=== PATIENT | female | born 1950 | race Caucasian/White ===

== ENCOUNTER 2017-04-27 10:03 | Inpatient (IN) | payer BC, OTHER ==
[2017-04-11 12:19] VITALS: BMI 34.0
--- NOTE | 2017-04-11 13:03 | PAT Medication Instructions ---
Service Date Apr 11, 2017. Current Home Medication List Acetaminophen Tab (Tylenol), 650 MG PO QID PRN for Pain Calcium Carbonate-Vitamin D (Calcium), 1 TAB PO QAM Coenzyme Q10 (Ubidecarenone) (Coq-10), 300 MG PO QAM Docusate Sodium (Colace), 2 CAP PO BID Ibuprofen (Ibuprofen), 400 MG PO BID PRN for Pain Multivitamin (Multivitamin), 1 TAB PO QAM Medication Instructions For Your Scheduled Surgery Ibuprofen (Ibuprofen), 400 MG PO BID PRN for Pain (hold 1 week prior to surgery per surgeon instructions) - Hold the following medications 2 weeks prior to surgery: Coenzyme Q10 (Ubidecarenone) (Coq-10), 300 MG PO QAM - Hold the following medications the morning of surgery: Multivitamin (Multivitamin), 1 TAB PO QAM Docusate Sodium (Colace), 2 CAP PO BID Calcium Carbonate-Vitamin D (Calcium), 1 TAB PO QAM - Take the following medications the morning of surgery with a sip of water: Acetaminophen Tab (Tylenol), 650 MG PO QID PRN for Pain (if needed) - Take the following medications as scheduled the night before surgery: Docusate Sodium (Colace), 2 CAP PO BID Acetaminophen Tab (Tylenol), 650 MG PO QID PRN for Pain If you have any questions please call us at [phone] or [phone] ( [facility]) or [phone]
--- NOTE | 2017-04-11 13:47 | DIAGNOSTIC IMAGING REPORT ---
CHEST PREADMISSION(PA/LAT) CLINICAL HISTORY: PAT preoperative evaluation COMPARISON STUDY: No previous studies for comparison. FINDINGS: The bones soft tissues and hemidiaphragms are normal. The cardiomediastinal silhouette is normal. The lungs are clear. The pulmonary vasculature is normal. IMPRESSION: Negative chest. Electronically signed by: Calixto Linder M.D. 04/11/2017 1:45 PM Dictated Date/Time: 04/11/2017 1:43 PM
[2017-04-11 13:55] LABS: BASO % 0.6 %; BASO ABS # 0.03 K/uL (0-0.2); COMPLETE YES; EOS % 0.6 %; HEMATOCRIT 39.6 % (37-47); IG% 0.2 %; LYMPH % 27.6 %; LYMPH ABS # 1.49 K/uL (1.2-3.4); MEAN CELL VOLUME 91.5 fL (80-100); MEAN CORPUSCULAR HEMOGLOBIN 29.8 pg (25-34); MEAN CORPUSCULAR HGB CONC 32.6 g/dl (32-36); MEAN PLATELET VOLUME 9.3 fL (7.4-10.4); MONO % 9.8 %; NEUT % 61.2 %; PLATELET COUNT 351 K/uL (130-400); RED BLOOD COUNT 4.33 M/uL (4.2-5.4); WHITE BLOOD COUNT 5.39 K/uL (4.8-10.8)
[2017-04-11 14:04] LABS: BUN/CREATININE RATIO 23.1 (10-20); CALCIUM 9.9 mg/dl (8.5-10.1); CREATININE 0.75 mg/dl (0.60-1.20); POTASSIUM 4.3 mmol/L (3.5-5.1)
[2017-04-11 14:11] LABS: URINE APPEARANCE CLEAR (CLEAR); URINE BILIRUBIN NEG (NEG); URINE COLOR DK YELLOW; URINE NITRITE NEG (NEG); URINE SPECIFIC GRAVITY 1.017 (1.000-1.030); UROBILINOGEN NEG (NEG)
[2017-04-11 14:19] LABS: MANUAL MICROSCOPIC REQUIRED? NO; REVIEW REQ? NO
[~2017-04-27] VITALS: Ht 157.5 cm; Wt 85.3 kg
[2017-04-27] VITALS (7 sets, daily range): BP systolic 95–155; BP diastolic 55–75; PULSE 71–99; TEMP 36.4–36.8; O2SAT 96–100; Ht 157.5 cm; Wt 85.3 kg
[~2017-04-27 10:03] MED LIST: ACET325T96 PO; ANCEF - ALLERGY NOTED TO ORDERED MEDICATION SCH; ATROPINE SULFATE 0.1 MG/ML 5ML SYR IV PRN; CALC-51 PO; CEFAZOLIN 2000 MG/60 ML D5W IV SCH; COEN150C2 PO; DOCU-94 PO; EpHEDrine SULFATE INJ 50 MG/ML AMP IV PRN; FENTANYL CITRATE INJ 50 MCG/1 ML 2 ML VIAL IV PRN; HYDROmorphone INJ 1 MG/ML SYR IV PRN; IBUP1CAP9 PO; LACTATED RINGER'S 1000ML 1,000 ML IV SCH; MULT-506 PO; ONDANSETRON INJ 2 MG/ML 2 ML VIAL IV PRN; SCOPOLAMINE 1.5 MG TDSY TD SCH
--- NOTE | 2017-04-27 11:51 | History & Physical Bridge Note ---
H&P Re-Evaluation Bridge Note: I have examined the patient, reviewed the History & Physical and in the interval since the performance of the History & Physical I have noted the following changes of clinical significance: No changes noted
[2017-04-27] MEDS ORDERED: FENTANYL CITRATE INJ 50 MCG/1 ML 2 ML VIAL ONE ×3 (11:52→16:21)
[2017-04-27] MEDS ORDERED: MIDAZOLAM HCL 1 MG/ML 2ML VIAL ONE (11:52)
--- NOTE | 2017-04-27 11:52 | History and Physical ---
History & Physical Date Apr 27, 2017. Chief Complaint back and leg pain History of Present Illness The patient is a 67 year old female with complaints of Additional History Hepatic Disease: No Endocrine Disorder: No Kidney Disease: No Hypertension: No Heart Disease: No Bleeding Tendencies: No Infectious Diseases: No Allergies Coded Allergies: Amoxicillin (Verified Allergy, Mild, HIVES, 04/27/17) Copper (Verified Allergy, Mild, HIVES, 04/27/17) Home Medications Scheduled Calcium Carbonate-Vitamin D (Calcium), 1 TAB PO QAM Coenzyme Q10 (Ubidecarenone) (Coq-10), 300 MG PO QAM Docusate Sodium (Colace), 2 CAP PO BID Multivitamin (Multivitamin), 1 TAB PO QAM Scheduled PRN Acetaminophen Tab (Tylenol), 650 MG PO QID PRN for Pain Ibuprofen (Ibuprofen), 400 MG PO BID PRN for Pain Physical Examination Skin: warm/dry, no rash Eyes: normal inspection, EOMI, sclerae normal ENT: normal ENT inspection, pharynx normal Head: normocephalic, atraumatic Neck: supple, no adenopathy, trachea midline Respiratory/Chest: lungs clear, normal breath sounds, no respiratory distress Cardiovascular: regular rate, rhythm, no edema, no murmur Abdomen / GI: normal bowel sounds, non tender Back: normal inspection Extremities: normal inspection, normal range of motion Neurologic/Psych: no motor/sensory deficits, alert, normal reflexes, oriented x 3 Diagnosis lumbar stenosis Plan of Treatment decompression fusion L3-S1
[2017-04-27] MEDS ORDERED: SODIUM CHLORIDE 0.9% PF 50 ML VIAL ONE (12:17)
[2017-04-27] MEDS ORDERED: BACITRACIN 50000 UNIT VIAL ONE (12:17)
[2017-04-27] MEDS ORDERED: BUPIVACAINE/EPINEPHRINE 0.5% MPF 1:200,000 10 ML VIAL ONE (12:17)
[2017-04-27] MEDS ORDERED: HYDROmorphone INJ 2 MG/ML SYR/VIAL ONE ×2 (12:58→16:20)
[2017-04-27] MEDS ORDERED: EpHEDrine SULFATE 50MG/5ML SYR ONE (13:14)
[2017-04-27] MEDS ORDERED: DiphenhydrAMINE HCL 50 MG/ML VIAL ONE (13:15)
[2017-04-27] MEDS ORDERED: ROCURONIUM BROMIDE 10 MG/ML 5 ML VIAL ONE (13:15)
[2017-04-27] MEDS ORDERED: ONDANSETRON INJ 2 MG/ML 2 ML VIAL ONE (13:15)
[2017-04-27] MEDS ORDERED: NEOSTIGMINE METHYLSULFATE 1 MG/ML 10ML VIAL ONE (13:15)
[2017-04-27] MEDS ORDERED: LIDOCAINE HCL 2% 2 ML VIAL (20MG/ML) ONE (13:15)
[2017-04-27] MEDS ORDERED: RANITIDINE HCL 25 MG/ML INJ ONE (13:15)
[2017-04-27] MEDS ORDERED: GLYCOPYRROLATE INJ 0.2 MG/ML VIAL ONE ×2 (13:15→14:25)
[2017-04-27] MEDS ORDERED: PROPOFOL IV EMULSION 10 MG/ML 20 ML VIAL IV ONE (13:15)
[2017-04-27] MEDS ORDERED: DEXAMETHASONE SOD INJ 4 MG/ML VIAL ONE (13:15)
[2017-04-27] MEDS ORDERED: METOCLOPRAMIDE HCL INJ 5 MG/ML 2 ML VIAL ONE (13:15)
[2017-04-27] MEDS ORDERED: ALBUMIN HUMAN 5% 12.5 GM/250 ML VIAL IV ONE ×2 (14:07)
[2017-04-27] MEDS ORDERED: PHENYLEPHRINE 100MCG/ML 5ML SYR ONE ×2 (14:42→15:21)
[2017-04-27] MEDS ORDERED: FLOSEAL HEMOSTATIC MATRIX 10ML TOP ONE (15:53)
[2017-04-27] MEDS ORDERED: SODIUM CHLORIDE 0.9% 1000ML 1,000 ML IV SCH ×2 (15:58→16:26)
[2017-04-27] MEDS ORDERED: LORAZEPAM INJ 0.5 MG in SYRINGE 0.75 ML IV PRN (16:00)
[2017-04-27] MEDS ORDERED: PROMETHAZINE HCL INJ 12.5 MG in SODIUM CHLORIDE 0.9% 50ML 50 ML IV PRN (16:00)
[2017-04-27] MEDS ORDERED: hydrOXYzine HCL 25 MG TAB PO PRN (16:00)
[2017-04-27] MEDS ORDERED: BISACODYL 10 MG SUPP PR PRN (16:00)
[2017-04-27] MEDS ORDERED: ALUMINUM/MAGNESIUM SUSP 30 ML UDC PO PRN (16:00)
[2017-04-27] MEDS ORDERED: METOCLOPRAMIDE HCL INJ 5 MG/ML 2 ML VIAL IV PRN (16:00)
[2017-04-27] MEDS ORDERED: DO NOT ADMINISTER FLU VACCINE PRN ×3 (16:00)
[2017-04-27] MEDS ORDERED: ACETAMINOPHEN 500 MG TAB PO PRN (16:00)
[2017-04-27] MEDS: CHECK SCOPOLAMINE PATCH PLACEMENT SCH (16:00)
[2017-04-27] MEDS ORDERED: NALOXONE HCL 0.4 MG/1 ML VIAL/CARP IV PRN ×3 (16:00→16:30)
[2017-04-27] MEDS ORDERED: HYDROmorphone INJ 0.5 MG/0.5 ML SYR IV PRN (16:00)
[2017-04-27] MEDS ORDERED: HYDROmorphone HCL 0.5MG/ML 50 ML CASSETTE IV PRN (16:00)
[2017-04-27] MEDS ORDERED: SOD PHOSPHATE/SOD BIPHOSPHATE ENEMA 132 ML BTL PR PRN (16:00)
[2017-04-27] MEDS ORDERED: LORAZEPAM 0.5 MG TAB PO PRN (16:00)
[2017-04-27] MEDS ORDERED: MAGNESIUM HYDROXIDE SUSP 30 ML UDC PO PRN (16:00)
[2017-04-27] MEDS ORDERED: FAMOTIDINE 20 MG TAB PO PRN (16:00)
[2017-04-27] MEDS ORDERED: DO NOT ADMINISTER PNEUMOCOCCAL VACCINE PRN ×2 (16:00)
[2017-04-27] MEDS ORDERED: ACETAMINOPHEN IV 100 ML IV PRN (16:00)
--- NOTE | 2017-04-27 16:05 | [facility] Operative Report ---
Operative Report Operative Date Apr 27, 2017. Pre-Operative Diagnosis Lumbar Spinal Stenosis L3-S1 Post-Operative Diagnosis Same as preoperative Procedure(s) Performed #1 lumbar decompression bilateral medial facetectomy foraminotomies L2 3 L3 4 L4 5 L5-S1. #2 posterior spinal fusion L3 4 L4 5 L5-S1. #3 placement of posterior segmental instrumentation L3 4 L4 5 L5-S1. 4 interbody fusion L5-S1. 5 placement of peek cage L5-S1 10 x 22 mm #6 placement locally harvested morcellized autograft and posterior gutters. #Placement of infuse collagen sponge about mask graft in the posterior lateral gutters and Jennifer bone graft in the interbody space. Surgeon Installation Tech Surgeon(s) Chapin Garcia PA-C Estimated Blood Loss 950mL Findings Severe spinal stenosis with spondylolisthesis Specimens None per surgeon Description of Procedure Patient was met with preoperatively case discussed all questions were addressed. At that point patient was taken back to the operative suite and after undergoing successful inhibition was placed in a prone position on the Luis table top of the Sumit frame. All bony prominences were well-padded eyes were inspected to ensure there is no external pressure placed upon them. # Was prepped and draped in normal sterile fashion sharp dissection with the assistance of Bovie cartilage was performed onto an exposing the lamina and transverse processes of 345 and the sacral alar. From a caudal to cephalad fashion complete laminectomy of L5 L4 L3 partial laminectomy of L2 was performed a secluded bilateral medial facetectomies foraminotomies to address severe lateral recess stenosis. After this complete pedicle screws were placed in L3-L4 L5-S1 levels bilaterally with the assistance of fluoroscopy and a a appropriately sized addi placed. Through a transforaminal approach on the right complete discectomy of L5 was was performed and plate curetted to subcortical bleeding bone and a 10 x 22 mm peek cage filled Jennifer bone grafting To position. Brought in and locked in place cross-link locked into place. Transverse processes of 345 burred to subcortical bleeding bone infuse collagen sponge mask graft locally harvested morcellized autograft was placed in the posterior lateral gutters. 15 round drain inserted. Incision was then closed with 1 Vicryl in the fascia 2-0 Vicryl subcutaneously and 4-0 Monocryl for final skin closure. Patient was awakened and taken to PACU in stable condition. Please note micral record was present throughout the entire procedure involved in patient positioning complexed portions of the procedure and final skin closure. I attest to the content of the Intraoperative Record and any orders documented therein. Any exceptions are noted below.
[2017-04-27] MEDS ORDERED: ESMOLOL HCL 10 MG/ML 10 ML VIAL ONE (16:09)
--- NOTE | 2017-04-27 16:09 | DIAGNOSTIC IMAGING REPORT ---
LUMBAR SPINE 2 OR 3 VIEW CLINICAL HISTORY: 67 years-old Female presenting with LUMBAR DECOMPRESSION/FUSION/INTERBODY. TECHNIQUE: 3 fluoroscopic spot images including frontal and lateral views of the lumbar spine were obtained intraoperatively as part of the surgical procedure. COMPARISON: None. FINDINGS/IMPRESSION: Posterior bilateral transpedicular screw and addi fixation of L3-S1 with interbody spacer at L5-S1. Grossly normal anatomic alignment. Fluoroscopic time: 30 seconds. Please see separately dictated surgical report for further details. Electronically signed by: Dashawn Tatum M.D. 04/27/2017 4:08 PM Dictated Date/Time: 04/27/2017 4:06 PM
[2017-04-27] MEDS ORDERED: HYDROmorphone HCL 0.5MG/ML 50 ML CASSETTE ONE (16:21)
--- NOTE | 2017-04-27 16:46 | Anesthesiology Progress Note ---
Anesthesia Post Op Note Date & Time Apr 27, 2017 at 16:46 Vital Signs Vital Signs Past 12 Hours Date Time Temp Pulse Resp B/P (MAP) Pulse Ox O2 Delivery O2 Flow Rate FiO2 04/27/17 16:35 94 14 110/55 100 Oxymask 10 04/27/17 16:25 95 14 143/72 100 Oxymask 10 04/27/17 16:20 36.2 100 16 122/70 100 Oxymask 04/27/17 10:53 36.8 71 18 155/75 98 Room Air Notes Mental Status: alert / awake / arousable, participated in evaluation Pt Amnestic to Procedure: Yes Nausea / Vomiting: adequately controlled Pain: adequately controlled Airway Patency, RR, SpO2: stable & adequate BP & HR: stable & adequate Hydration State: stable & adequate Anesthetic Complications: no major complications apparent
[2017-04-27] MEDS ORDERED: OXYCODONE HCL IR 5 MG TAB (IMMEDIATE RELEASE) PO PRN (18:14)
[2017-04-27] MEDS: LACTATED RINGER'S 1000ML 1,000 ML IV SCH ×2 (18:53→22:07)
[2017-04-27] MEDS ORDERED: PNEUMOCOCCAL POLYSACCHARIDES 25 MCG/0.5 ML VIAL/SYR IM. ONE (19:00)
[2017-04-27] MEDS ORDERED: PNEUMOCOCCAL ADMINISTRATION CHARGE ONE (19:00)
[2017-04-27] MEDS: CLINDAMYCIN IV 600 MG in DEXTROSE 5% 50ML 50 ML IV SCH (20:22)
[2017-04-27] MEDS: DOCUSATE SODIUM/SENNA 50/8.6MG TAB PO SCH (20:22)
[2017-04-27] MEDS: DEXAMETHASONE INJ 6 MG in SYRINGE 0 ML IV SCH (22:06)
[2017-04-27] MEDS: ONDANSETRON INJ 2 MG/ML 2 ML VIAL IV PRN (22:13)
[2017-04-27] MEDS: HYDROmorphone HCL 0.5MG/ML 50 ML CASSETTE IV PRN (23:01)
[2017-04-28] MEDS: CHECK SCOPOLAMINE PATCH PLACEMENT SCH ×3 (00:18→15:23)
[2017-04-28 03:21] VITALS: BP 100/62; PULSE 87; TEMP 36.5; O2SAT 100
[2017-04-28] MEDS: CLINDAMYCIN IV 600 MG in DEXTROSE 5% 50ML 50 ML IV SCH (03:53)
[2017-04-28] MEDS: LACTATED RINGER'S 1000ML 1,000 ML IV SCH (03:53)
[2017-04-28] MEDS: DEXAMETHASONE INJ 6 MG in SYRINGE 0 ML IV SCH ×2 (05:25→13:48)
[2017-04-28] MEDS: ONDANSETRON INJ 2 MG/ML 2 ML VIAL IV PRN (05:28)
[2017-04-28 05:53] LABS: BASO % 0.1 %; BASO ABS # 0.01 K/uL (0-0.2); HEMATOCRIT 25.4 % (37-47); IG% 0.3 %; LYMPH % 6.6 %; LYMPH ABS # 0.75 K/uL (1.2-3.4); MEAN CELL VOLUME 90.7 fL (80-100); MEAN CORPUSCULAR HEMOGLOBIN 30.4 pg (25-34); MEAN CORPUSCULAR HGB CONC 33.5 g/dl (32-36); MEAN PLATELET VOLUME 8.9 fL (7.4-10.4); MONO % 7.3 %; NEUT % 85.7 %; PLATELET COUNT 286 K/uL (130-400); WHITE BLOOD COUNT 11.39 K/uL (4.8-10.8)
[2017-04-28 06:29] LABS: COMPLETE YES
[2017-04-28 06:31] LABS: BUN/CREATININE RATIO 19.3 (10-20); CALCIUM 8.4 mg/dl (8.5-10.1); CREATININE 0.67 mg/dl (0.60-1.20); POTASSIUM 4.5 mmol/L (3.5-5.1)
[2017-04-28 06:44] VITALS: BP 99/61; PULSE 87; TEMP 36.9; O2SAT 98
[2017-04-28] MEDS: HYDROmorphone HCL 0.5MG/ML 50 ML CASSETTE IV PRN (07:11)
[2017-04-28] MEDS ORDERED: RXC5 PO (09:55)
--- NOTE | 2017-04-28 09:56 | Discharge Instructions ---
Discharge Instructions Date of Service Apr 28, 2017. Admission Reason for Admission: Lumbar Spinal Stenosis Discharge Discharge Diagnosis / Problem: stenosis Discharge Goals Goal(s): Improve function Activity Recommendations Activity Limitations: per Instructions/Follow-up section . Instructions / Follow-Up Instructions / Follow-Up ACTIVITY RECOMMENDATIONS: SELF CARE INSTRUCTIONS AFTER THORACIC/LUMBAR FUSIONS 1. You may walk to your tolerance. It is good exercise for your legs and back. Expect some back and intermittent leg aches and pains. 2. You may perform "counter-top" level activities (make a sandwich, kit with a project, etc.). 3. No bending or lifting of more than 10 pounds or back twisting of any nature (roll like a log when turning in bed). 4. You may ride in a car for 20-30 minutes at a time. No driving until after your first visit with your doctor. 5. Frequent changes of position and restricting sitting to 30 minutes at a time will help limit the amount of back spasms and stiffness you may experience. 6. You may discontinue the use of ambulatory aids (cane, crutches, etc.) once your strength and confidence allow. 7. You may gaming cage worker the shower and let water strike your incision when you arrive home at least once daily. Do not take a tub bath, sit in a hot tub or go into a swimming pool until after your first recheck in the office. SPECIAL CARE INSTRUCTIONS: VERY IMPORTANT TO READ AND REVIEW A. Your surgical incision has been closed with a cosmetic suture under the skin that will dissolve in about 6 weeks. In 14 days, you can use a pair of clean scissors and cut the suture that is left outside of the skin at the ends of your incision. 1. The small skin tapes can be removed 7 days after surgery if they have not fallen off by that point. 2. You may keep the wound open to air as much as possible to promote healing after post-op day number 5 unless told otherwise by your doctor. 3. If you think the wound looks like it is becoming infected (redness or worsening drainage) and/or you are experiencing fever, chill or worsening back pain and muscle spasms, contact the office so that we may evaluate you as soon as possible. B. Complications are uncommon, but please contact us if you have any signs or symptoms of: 1. wound infection (fever higher than 102.5 degrees F, redness, separation of wound, drainage, or increasing pain from the incision) 2. blood clots in legs (pain, swelling, redness and warmth in legs) 3. urinary tract infection (fever higher than 102.5 degrees F, burning upon urination or increased frequency of urination) 4. nerve problems (inability to walk on your toes or heels, numbness, loss of bowel or bladder control) 5. any other symptoms that concern you C. Please call the office at if you have any concerns or questions about your operation or recovery. D. No smoking! Smoking drastically decreases the chance of a solid fusion. E. Do not take any anti-inflammatory medications (Indocin, Advil, Motrin, Aspirin, Naprosyn, etc.) as these may inhibit the chance of a solid fusion. Tylenol is okay to take for pain. MANAGING PAIN AFTER SPINAL SURGERY 1. Narcotic medication is intended for short-term use and will be provided for surgical pain. Surgical pain usually lasts for a period of 4-6 weeks. Narcotic medication includes Percocet, Vicodin, Darvocet, Tylenol #3 or Lortab. 2. Longer-term pain is more appropriately treated with non-narcotic medication such as Tylenol ES. 3. Muscle spasm is not appropriately treated with narcotics. Muscle relaxers such as Soma, Flexeril or Skelaxin can be used along with Tylenol ES. 4. Remember that we all live with some "aches and pains". This is not unusual or uncommon after an injury or as we get older. a. Back pain is expected and may include muscle spasms for 4 to 6 weeks after surgery. The pain should gradually improve. If the pain worsens for no apparent reason, please contact the office. b. Intermittent leg pain may also be experienced and should not be concerned about unless it worsens for no apparent reason. If so, please contact the office. 5. We will provide appropriate medication within the normal guidelines of their prescribed use. We will also be very cautious and aware of potential abuse and extended duration of patients' medication needs. a. Pain medications are for your comfort and to assist with sleep and rest so that the tissue can heal. They are not provided in order to return to normal activity and should not be used through the day. To do so or worsening pain at night can result from ongoing tissue damage and development of tolerance to the prescribed medicine. 6. Please allow 2-3 days to process refills. Prescriptions will not be mailed but must be picked up at the office. FOLLOW UP VISIT: Keep your scheduled follow-up appointment. Any questions, please call the office at . Current Hospital Diet Patient's current hospital diet: Regular Diet Discharge Diet Recommended Diet: Regular Diet Procedures Procedures Performed: #1 lumbar decompression bilateral medial facetectomy foraminotomies L2 3 L3 4 L4 5 L5-S1. #2 posterior spinal fusion L3 4 L4 5 L5-S1. #3 placement of posterior segmental instrumentation L3 4 L4 5 L5-S1. 4 interbody fusion L5-S1. 5 placement of peek cage L5-S1 10 x 22 mm #6 placement locally harvested morcellized autograft and posterior gutters. #Placement of infuse collagen sponge about mask graft in the posterior lateral gutters and Jennifer bone graft in the interbody space. Pending Studies Studies pending at discharge: no Medical Emergencies . Who to Call and When: Medical Emergencies: If at any time you feel your situation is an emergency, please call 911 immediately. . Non-Emergent Contact Non-Emergency issues call your: Primary Care Provider . "Provider Documentation" section prepared by Armando Cadena. . VTE Core Measure Inpt VTE Proph given/why not?: Siva Bates, SCD's
--- NOTE | 2017-04-28 10:00 | Progress Note ---
Progress Note Date of Service Apr 28, 2017. Progress Note Patient is postop day #1. Back pain is controlled. Leg pain markedly improved. She seemed waiting halls with a walker. Vital signs are stable. Hemoglobin 8.5. On exam she is good strength testing appears very comfortable. She is in the chair at the bedside. Assessment status post lumbar decompression fusion. Plan at this time we will initiate physical therapy advance bowel regiment. We will assess her H&H in the a.m.
[2017-04-28] MEDS ORDERED: NURSING VERBAL MED ORDER ONE ×2 (10:15)
[2017-04-28 11:16] VITALS: BP 118/65; PULSE 87; TEMP 36.5; O2SAT 100
[2017-04-28] MEDS: KETOROLAC TROMETHAMINE 15 MG/ML VIAL IV PRN ×2 (12:25→18:43)
[2017-04-28 15:03] VITALS: BP 95/58; PULSE 94; TEMP 36.8; O2SAT 97
[2017-04-28] MEDS: DOCUSATE SODIUM/SENNA 50/8.6MG TAB PO SCH (20:26)
[2017-04-28 23:07] VITALS: BP 99/50; PULSE 76; TEMP 37; O2SAT 94
[2017-04-29] VITALS (13 sets, daily range): BP systolic 88–108; BP diastolic 49–65; PULSE 70–82; TEMP 36.8–37.2; O2SAT 94–100
[2017-04-29] MEDS: KETOROLAC TROMETHAMINE 15 MG/ML VIAL IV PRN ×3 (00:16→17:03)
[2017-04-29] MEDS: POLYETHYLENE (MIRALAX) 17 GM PACK PO SCH ×3 (05:08→18:00)
[2017-04-29] MEDS: CHECK SCOPOLAMINE PATCH PLACEMENT SCH ×3 (08:00→16:00)
[2017-04-29] MEDS ORDERED: ONDANSETRON 4 MG TAB PO PRN (09:15)
--- NOTE | 2017-04-29 09:45 | Progress Note ---
Progress Note Date of Service Apr 29, 2017. Progress Note Patient is postop day #2. Leg pain is markedly improved. Feels very fatigued over. Is tolerating walking well. Hemoglobin 7.6 today. Vital signs otherwise stable. No bowel movement as of yet. On exam she is able to stand and incomplete as excellent posture using a walker. Assessment status post lumbar decompression fusion. Plan at this time we will transfuse 2 units today assess her progress tomorrow hopefully discharge on Sunday or Sunday
[2017-04-29] MEDS: HYDROCODONE/ACETAMOPHEN 5/325MG TAB PO PRN ×2 (13:56→18:05)
[2017-04-29] MEDS: ONDANSETRON INJ 2 MG/ML 2 ML VIAL IV PRN (18:05)
[2017-04-29] MEDS: DOCUSATE SODIUM/SENNA 50/8.6MG TAB PO SCH (21:18)
[2017-04-30] MEDS: CHECK SCOPOLAMINE PATCH PLACEMENT SCH
[2017-04-30] MEDS: KETOROLAC TROMETHAMINE 15 MG/ML VIAL IV PRN ×3 (00:43→14:48)
[2017-04-30] MEDS: POLYETHYLENE (MIRALAX) 17 GM PACK PO SCH ×3 (05:48→12:00)
[2017-04-30 06:31] VITALS: BP 98/60; PULSE 75; TEMP 37.3; O2SAT 96
[2017-04-30] MEDS: ONDANSETRON INJ 2 MG/ML 2 ML VIAL IV PRN (07:22)
--- NOTE | 2017-04-30 07:39 | Anesthesiology Progress Note ---
Anesthesia Post Op Note Date & Time Apr 30, 2017 at 07:34 Vital Signs Vital Signs Past 12 Hours Date Time Temp Pulse Resp B/P (MAP) Pulse Ox O2 Delivery O2 Flow Rate FiO2 04/30/17 06:31 37.3 75 16 98/60 (73) 96 Room Air 04/30/17 00:35 Room Air 04/29/17 22:50 37.1 81 16 101/63 (76) 94 Room Air Notes Mental Status: alert / awake / arousable, participated in evaluation Pt Amnestic to Procedure: Yes Nausea / Vomiting: adequately controlled, improving with treatment Pain: adequately controlled Airway Patency, RR, SpO2: stable & adequate BP & HR: stable & adequate Hydration State: stable & adequate Anesthetic Complications: no major complications apparent The patient was nauseous immediately post-op. Improved with treatment. Denied any nausea on post-op day 1
[2017-04-30 08:13] LABS: HEMATOCRIT 27.3 % (37-47)
[2017-04-30] MEDS ORDERED: HYDR-5688 PO (11:29)
[2017-04-30] MEDS ORDERED: ONDA4TAB65 PO (11:29)
--- NOTE | 2017-04-30 11:48 | Discharge Summary ---
Orthopedic Discharge Summary Admission Date/Reason Apr 27, 2017 at 12:00 Lumbar Spinal Stenosis. Discharge Date/Disposition Apr 30, 2017 Home Diagnosis Principal Diagnosis: Lumbar stenosis Admission Physical Exam As per Admitting History & Physical. Hospital Course Patient underwent multilevel lumbar decompression fusion. She tolerated this well. Postoperatively she progressed very nicely. We did transfuse 2 units postop day 2. Postoperative day 3 hematocrit significant we pain well controlled subsequently discharged home. Discharge orders and instructions found on the chart for further review. Discharge Instructions Please refer to the electronic Patient Visit Report (Discharge Instructions) for additional information.
[2017-04-30] MEDS: HYDROCODONE/ACETAMOPHEN 5/325MG TAB PO PRN (12:23)
[2017-04-30 15:07] VITALS: BP 98/60; PULSE 75; TEMP 37.3; O2SAT 96
== END 2017-04-30 15:20 | disposition home or self-care (01) | DRG 460 ==
LOC: C.ACU 10:03 → C.3E 12:00 → ENRESERV 16:42
PROVIDERS: ADMIT Orthopaedic Surgery Orthopaedic Surgery of the Spine; ATTEND Orthopaedic Surgery Orthopaedic Surgery of the Spine
PROC: 3E0U3GB Introduction of Recombinant Bone Morphogenetic Protein into Joints, Percutaneous Approach (ICD-10-PCS; principal; 2017-04-27 12:15)
PROC: 0SG30A1 (ICD-10-PCS; principal; 2017-04-27 12:15)
DX: M48.06 Spinal stenosis, lumbar region (principal)